=== PATIENT | male | born 1990 | race Caucasian/White ===

== ENCOUNTER 2018-04-09 20:06 | Emergency (ER) | payer BC ==
--- NOTE | 2018-04-09 21:30 | ER ---
Nurse's Notes [facility] Name: Miguel Zayas Age: 28 yrs Sex: Male : 1990 Arrival Date: 04/09/2018 Time: 20:12 Bed Waiting Private MD: Diagnosis: Pain in left arm-s/p blood draw Presentation: 04/09 20:20 Presenting complaint: Patient states: "I had blood drawn at work today and my arm still aj hurts where they took it. It was swollen but it went down." Bruise noted to right mid forearm. Transition of care: patient was not received from another setting of care. Onset of symptoms was April 09, 2018. Risk Assessment: Do you want to hurt yourself or someone else? Patient reports no desire to harm self or others. Initial Sepsis Screen: Does the patient meet any 2 criteria? No. Patient's initial sepsis screen is negative. Does the patient have a suspected source of infection? No. Patient's initial sepsis screen is negative. Care prior to arrival: None. 20:20 Method Of Arrival: Ambulatory 20:20 Acuity: BILLY 5 aj Triage Assessment: 20:21 General: Appears in no apparent distress. comfortable, Behavior is calm, cooperative, aj appropriate for age. Pain: Complains of pain in dorsal aspect of right forearm. Neuro: Level of Consciousness is awake, alert, obeys commands, Oriented to person, place, time, situation, Appropriate for age. Respiratory: Airway is patent Respiratory effort is even, unlabored, Respiratory pattern is regular, symmetrical. Derm: Skin is intact, is healthy with good turgor, Skin is pink, warm \\T\\ dry. normal, Bruising that is brown, on dorsal aspect of right forearm. Historical: - Allergies: 20:21 Amoxicillin; aj - Home Meds: 20:21 Levemir 100 unit/mL subcutaneous soln 20 unit nightly for Type 1 Diabetes Mellitus aj [Active]; - PMHx: 20:21 Diabetes - IDDM; aj - PSHx: 20:21 None; aj - Immunization history:: Adult Immunizations up to date. - Social history:: Smoking status: Patient uses tobacco products, smokes one pack cigarettes per day. - Ebola Screening: : Patient negative for fever greater than or equal to 101.5 degrees Fahrenheit, and additional compatible Ebola Virus Disease symptoms Patient denies exposure to infectious person Patient denies travel to an Ebola-affected area in the 21 days before illness onset No symptoms or risks identified at this time. Screenin:27 Abuse screen: Denies threats or abuse. Denies injuries from another. Nutritional aj screening: No deficits noted. Tuberculosis screening: No symptoms or risk factors identified. Fall Risk None identified. Assessment: 21:27 Reassessment: Patient appears in no apparent distress at this time. No changes from aj previously documented assessment. Patient and/or family updated on plan of care and expected duration. Pain level reassessed. Patient is alert, oriented x 3, equal unlabored respirations, skin warm/dry/pink. Vital Signs: 20:21 BP 130 / 82; Pulse 83; Resp 16; Temp 98.8; Pulse Ox 100% on R/A; Weight 72.57 kg; aj Height 5 ft. 11 in. (180.34 cm); 20:21 Body Mass Index 22.32 (72.57 kg, 180.34 cm) aj ED Course: 20:12 Patient arrived in ED. mr 20:21 Triage completed. aj 20:21 Arm band placed on left wrist. Patient placed in waiting room, Patient notified of wait aj time. 20:53 Tami Castrejon FNP-C is [facility]. snw 20:53 Kaiden Rodriguez MD is Attending Physician. snw 21:27 Patient has correct armband on for positive identification. aj 21:27 No provider procedures requiring assistance completed. Patient did not have IV access aj during this emergency room visit. Administered Medications: No medications were administered Outcome: 21:27 Condition: good aj 21:29 Discharge ordered by . snw 21:34 Discharged to home ambulatory. aj 21:34 Discharge instructions given to patient, Instructed on discharge instructions, follow up and referral plans. Demonstrated understanding of 21:35 Patient left the ED. Signatures: Radha Johnston RN RN Tami Denny FNP-C FNP-Csnw Karen Schmitz mr
--- NOTE | 2018-04-09 21:30 | EDPHYS ---
Physician Documentation [facility] Name: Miguel Zayas Age: 28 yrs Sex: Male : 1990 Arrival Date: 04/09/2018 Time: 20:12 Bed Waiting Private MD: ED Physician Kaiden Rodriguez HPI: 04/09 21:33 This 28 yrs old Male presents to ER via Ambulatory with complaints of Arm snw Swelling. 21:33 Onset: The symptoms/episode began/occurred suddenly. Associated signs and symptoms: snw Pertinent positives: pain to lateral ac space s/p blood draw today. Modifying factors: The patient symptoms are alleviated by nothing. It is unknown whether or not the patient has had similar symptoms in the past. It is unknown whether or not the patient has recently seen a physician. Historical: - Allergies: 20:21 Amoxicillin; aj - Home Meds: 20:21 Levemir 100 unit/mL subcutaneous soln 20 unit nightly for Type 1 Diabetes Mellitus aj [Active]; - PMHx: 20:21 Diabetes - IDDM; aj - PSHx: 20:21 None; aj - Immunization history:: Adult Immunizations up to date. - Social history:: Smoking status: Patient uses tobacco products, smokes one pack cigarettes per day. - Ebola Screening: : Patient negative for fever greater than or equal to 101.5 degrees Fahrenheit, and additional compatible Ebola Virus Disease symptoms Patient denies exposure to infectious person Patient denies travel to an Ebola-affected area in the 21 days before illness onset No symptoms or risks identified at this time. ROS: 21:32 Constitutional: Negative for fever, chills, and weight loss, Eyes: Negative for injury, snw pain, redness, and discharge, ENT: Negative for injury, pain, and discharge, Neck: Negative for injury, pain, and swelling, Cardiovascular: Negative for chest pain, palpitations, and edema, Respiratory: Negative for shortness of breath, cough, wheezing, and pleuritic chest pain, Abdomen/GI: Negative for abdominal pain, nausea, vomiting, diarrhea, and constipation, Back: Negative for injury and pain, : Negative for injury, bleeding, discharge, and swelling, Skin: Negative for injury, rash, and discoloration, Neuro: Negative for headache, weakness, numbness, tingling, and seizure, Psych: Negative for depression, anxiety, suicide ideation, homicidal ideation, and hallucinations. 21:32 MS/extremity: Positive for injury or acute deformity, tingling. Exam: 21:31 Constitutional: This is a well developed, well nourished patient who is awake, alert, snw and in no acute distress. Head/Face: Normocephalic, atraumatic. Eyes: Pupils equal round and reactive to light, extra-ocular motions intact. Lids and lashes normal. Conjunctiva and sclera are non-icteric and not injected. Cornea within normal limits. Periorbital areas with no swelling, redness, or edema. ENT: Nares patent. No nasal discharge, no septal abnormalities noted. Tympanic membranes are normal and external auditory canals are clear. Oropharynx with no redness, swelling, or masses, exudates, or evidence of obstruction, uvula midline. Mucous membranes moist. Neck: Trachea midline, no thyromegaly or masses palpated, and no cervical lymphadenopathy. Supple, full range of motion without nuchal rigidity, or vertebral point tenderness. No Meningismus. Chest/axilla: Normal chest wall appearance and motion. Nontender with no deformity. No lesions are appreciated. Cardiovascular: Regular rate and rhythm with a normal S1 and S2. No gallops, murmurs, or rubs. Normal PMI, no JVD. No pulse deficits. Respiratory: Lungs have equal breath sounds bilaterally, clear to auscultation and percussion. No rales, rhonchi or wheezes noted. No increased work of breathing, no retractions or nasal flaring. Abdomen/GI: Soft, non-tender, with normal bowel sounds. No distension or tympany. No guarding or rebound. No evidence of tenderness throughout. Back: No spinal tenderness. No costovertebral tenderness. Full range of motion. Skin: Warm, dry with normal turgor. Normal color with no rashes, no lesions, and no evidence of cellulitis. MS/ Extremity: Pulses equal, no cyanosis. Neurovascular intact. Full, normal range of motion. Neuro: Awake and alert, GCS 15, oriented to person, place, time, and situation. Cranial nerves II-XII grossly intact. Motor strength 5/5 in all extremities. Sensory grossly intact. Cerebellar exam normal. Normal gait. Psych: Awake, alert, with orientation to person, place and time. Behavior, mood, and affect are within normal limits. Vital Signs: 20:21 BP 130 / 82; Pulse 83; Resp 16; Temp 98.8; Pulse Ox 100% on R/A; Weight 72.57 kg; aj Height 5 ft. 11 in. (180.34 cm); 20:21 Body Mass Index 22.32 (72.57 kg, 180.34 cm) aj MDM: 21:29 Patient medically screened. snw 21:32 Data reviewed: vital signs, nurses notes. Data interpreted: Pulse oximetry: on room air snw is 100 %. Interpretation: normal. Counseling: I had a detailed discussion with the patient and/or guardian regarding: the historical points, exam findings, and any diagnostic results supporting the discharge/admit diagnosis, the presence of at least one elevated blood pressure reading (>120/80) during this emergency department visit, the need for outpatient follow up, for definitive care, to return to the emergency department if symptoms worsen or persist or if there are any questions or concerns that arise at home. Administered Medications: No medications were administered Disposition: 04/09/18 21:29 Discharged to Home. Impression: Pain in left arm - s/p blood draw. - Condition is Stable. - Discharge Instructions: Musculoskeletal Pain, Heat Therapy. - Medication Reconciliation Form, Thank You Letter, Antibiotic Education, Prescription Opioid Use form. - Follow up: Private Physician; When: 2 - 3 days; Reason: Recheck today's complaints, Continuance of care, Re-evaluation by your physician. Follow up: Emergency Department; When: As needed; Reason: Worsening of condition. Addendum: 04/12/2018 06:45 Co-signature as Attending Physician, Kaiden Rodriguez MD. g s Signatures: Radha Johnston, RN RN Tami Denny, STEWARD DISHWASHER-C STEWARD DISHWASHER-Csnw Kaiden Rodriguez MD MD gs Corrections: (The following items were deleted from the chart) 04/09 21:35 21:29 04/09/2018 21:29 Discharged to Home. Impression: Pain in left arm - s/p blood aj draw. Condition is Stable. Forms are Medication Reconciliation Form, Thank You Letter, Antibiotic Education, Prescription Opioid Use. Follow up: Private Physician; When: 2 - 3 days; Reason: Recheck today's complaints, Continuance of care, Re-evaluation by your physician. Follow up: Emergency Department; When: As needed; Reason: Worsening of condition. snw
== END 2018-04-09 21:35 | disposition home or self-care (01) ==
LOC: ER 20:06
DX: M79.602 Pain in left arm (principal); E11.9 Type 2 diabetes mellitus without complications; F17.210 Nicotine dependence, cigarettes, uncomplicated; Z79.4 Long term (current) use of insulin; Z88.1 Allergy status to other antibiotic agents
CPT/HCPCS: 99281

== ENCOUNTER 2018-06-23 20:14 | Emergency (ER) | payer BC ==
--- NOTE | 2018-06-23 21:45 | ER ---
Nurse's Notes [facility] Name: Miguel Zayas Age: 28 yrs Sex: Male : 1990 Arrival Date: 06/23/2018 Time: 20:18 Bed 30 Private MD: DG LEBLANC Diagnosis: Bronchitis, not specified as acute or chronic;Tobacco abuse counseling;Tobacco use;Type 1 diabetes mellitus Presentation: 06/23 20:21 Presenting complaint: Patient states: cough, congestion, SOB since Saturday. Transition ak1 of care: patient was not received from another setting of care. Onset of symptoms is unknown. Risk Assessment: Do you want to hurt yourself or someone else? Patient reports no desire to harm self or others. Initial Sepsis Screen: Does the patient meet any 2 criteria? No. Patient's initial sepsis screen is negative. Does the patient have a suspected source of infection? No. Patient's initial sepsis screen is negative. Care prior to arrival: None. 20:21 Method Of Arrival: Ambulatory ak1 20:21 Acuity: BILLY 4 ak1 Triage Assessment: 20:22 General: Appears in no apparent distress. Behavior is calm, cooperative, no resp ak1 distress noted in triage.. 21:47 Respiratory: Reports cough that is Onset: The symptoms/episode began/occurred tl3 gradually, the patient has moderate shortness of breath. Historical: - Allergies: 20:22 Amoxicillin; ak1 - Home Meds: 20:22 Levemir 100 unit/mL subcutaneous soln 20 unit nightly for Type 1 Diabetes Mellitus ak1 [Active]; - PMHx: 20:22 Diabetes - IDDM; ak1 - PSHx: 20:22 None; ak1 - Immunization history:: Adult Immunizations unknown. - Social history:: Smoking status: Patient uses tobacco products, smokes one pack cigarettes per day. - Ebola Screening: : No symptoms or risks identified at this time. - Family history:: not pertinent. Screenin:00 Abuse screen: Denies threats or abuse. Nutritional screening: No deficits noted. tl3 Tuberculosis screening: No symptoms or risk factors identified. Fall Risk None identified. Assessment: 21:00 Reassessment: pt reports cough and congestion for several days. General: Appears tl3 uncomfortable, well groomed, well developed, well nourished, Behavior is calm, cooperative, appropriate for age. Pain: Complains of pain in chest. Neuro: Level of Consciousness is awake, alert, obeys commands, Oriented to person, place, time, situation, Appropriate for age. Cardiovascular: Patient's skin is warm and dry. Rhythm is regular. Respiratory: Airway is patent Respiratory effort is even, unlabored, Respiratory pattern is regular, symmetrical, Breath sounds are coarse bilaterally. GI: No signs and/or symptoms were reported involving the gastrointestinal system. : No signs and/or symptoms were reported regarding the genitourinary system. EENT: No signs and/or symptoms were reported regarding the EENT system. Derm: No signs and/or symptoms reported regarding the dermatologic system. Musculoskeletal: No signs and/or symptoms reported regarding the musculoskeletal system. 21:46 Reassessment: No changes from previously documented assessment. Patient and/or family tl3 updated on plan of care and expected duration. Pain level reassessed. Patient is alert, oriented x 3, equal unlabored respirations, skin warm/dry/pink. pt on nebulizer treatment, xray just completed. 22:23 Reassessment: Patient appears in no apparent distress at this time. No changes from tl3 previously documented assessment. Patient and/or family updated on plan of care and expected duration. Pain level reassessed. Patient is alert, oriented x 3, equal unlabored respirations, skin warm/dry/pink. Patient states feeling better. Patient states symptoms have improved. Vital Signs: 20:22 BP 133 / 102; Pulse 92; Resp 20; Temp 97.9(O); Pulse Ox 100% on R/A; Weight 74.84 kg ak1 (R); Height 5 ft. 11 in. (180.34 cm) (R); Pain 0/10; 20:32 BP 126 / 83 LA Sitting (auto/reg); Pulse 85; Resp 18; Pulse Ox 100% on R/A; Pain 2/10; jp3 21:00 BP 136 / 87; Pulse 81; Resp 18; Pulse Ox 98% ; tl3 22:23 BP 126 / 84; Pulse 81; Resp 18; Pulse Ox 100% on R/A; tl3 20:22 Body Mass Index 23.01 (74.84 kg, 180.34 cm) ak1 20:32 patient reports pain in chest wall. patient smokes pack of cigs a day jp3 ED Course: 20:18 Patient arrived in ED. am2 20:18 DG LEBLANC is Private Physician. am2 20:22 Triage completed. ak1 20:22 Arm band placed on Patient placed in an exam room, on a stretcher, Patient notified of ak1 wait time. 20:25 Ferdinand Jones MD is Attending Physician. zara 21:00 Kathie Dunaway, RN is Primary Nurse. tl3 21:00 Patient has correct armband on for positive identification. Bed in low position. Call tl3 light in reach. Side rails up X 1. Pulse ox on. NIBP on. 21:00 No provider procedures requiring assistance completed. Patient did not have IV access tl3 during this emergency room visit. 21:35 X-ray(s) taken. tl3 21:46 Chest Single View XRAY Sent. tl3 21:48 Chest Single View XRAY In Process Unspecified. EDMS Administered Medications: 21:45 Drug: Albuterol - atroVENT (3:1) (2.5 mg - 0.5 mg) 3 ml Route: Nebulizer; tl3 22:24 Follow up: Response: No adverse reaction tl3 21:46 Drug: Zithromax 500 mg Route: PO; tl3 22:25 Follow up: Response: No adverse reaction tl3 21:46 Drug: predniSONE 40 mg Route: PO; tl3 22:25 Follow up: Response: No adverse reaction tl3 Point of Care Testing: Blood Glucose: 21:40 Blood Glucose: 289 mg/dL; tl3 Ranges: Outcome: 21:44 Discharge ordered by . zara 22:23 Discharged to home ambulatory. tl3 22:23 Condition: stable 22:23 Discharge instructions given to patient, Instructed on discharge instructions, follow up and referral plans. medication usage, Demonstrated understanding of instructions, follow-up care, medications, Prescriptions given X 3. 22:26 Patient left the ED. tl3 Signatures: Dispatcher [employer] EDMS Ferdinand Jones MD MD cha Krenek, Amber, RN RN ak1 Radha Bonilla am2 Kathie Dunaway, SOWMYA RN tl3 Josh Orellana jp3
--- NOTE | 2018-06-23 21:45 | EDPHYS ---
Physician Documentation [facility] Name: Migeul Zayas Age: 28 yrs Sex: Male : 1990 Arrival Date: 06/23/2018 Time: 20:18 Bed 30 Private MD: DG LEBLANC ED Physician Ferdinand Jones HPI: 06/23 21:32 This 28 yrs old Male presents to ER via Ambulatory with complaints of Cough, zara Shortness Of Breath. 21:32 The patient or guardian reports airway noise, cough, difficulty breathing. Onset: The zara symptoms/episode began/occurred 3 day(s) ago. Severity of symptoms: At their worst the symptoms were mild. Modifying factors: The symptoms are alleviated by nothing, the symptoms are aggravated by nothing. Associated signs and symptoms: The patient has no apparent associated signs or symptoms. The patient has not experienced similar symptoms in the past. Historical: - Allergies: 20:22 Amoxicillin; ak1 - Home Meds: 20:22 Levemir 100 unit/mL subcutaneous soln 20 unit nightly for Type 1 Diabetes Mellitus ak1 [Active]; - PMHx: 20:22 Diabetes - IDDM; ak1 - PSHx: 20:22 None; ak1 - Immunization history:: Adult Immunizations unknown. - Social history:: Smoking status: Patient uses tobacco products, smokes one pack cigarettes per day. - Ebola Screening: : No symptoms or risks identified at this time. - Family history:: not pertinent. ROS: 21:32 Constitutional: Negative for fever, chills, and weight loss, Eyes: Negative for injury, zara pain, redness, and discharge, ENT: Negative for injury, pain, and discharge, Neck: Negative for injury, pain, and swelling, Cardiovascular: Negative for chest pain, palpitations, and edema, Abdomen/GI: Negative for abdominal pain, nausea, vomiting, diarrhea, and constipation, Back: Negative for injury and pain, : Negative for injury, bleeding, discharge, and swelling, MS/Extremity: Negative for injury and deformity, Skin: Negative for injury, rash, and discoloration, Neuro: Negative for headache, weakness, numbness, tingling, and seizure, Psych: Negative for depression, anxiety, suicide ideation, homicidal ideation, and hallucinations, Allergy/Immunology: Negative for hives, rash, and allergies, Endocrine: Negative for neck swelling, polydipsia, polyuria, polyphagia, and marked weight changes, Hematologic/Lymphatic: Negative for swollen nodes, abnormal bleeding, and unusual bruising. 21:32 Respiratory: Positive for cough, shortness of breath, wheezing, expiratory. Exam: 21:32 Constitutional: This is a well developed, well nourished patient who is awake, alert, zara and in no acute distress. Head/Face: Normocephalic, atraumatic. Eyes: Pupils equal round and reactive to light, extra-ocular motions intact. Lids and lashes normal. Conjunctiva and sclera are non-icteric and not injected. Cornea within normal limits. Periorbital areas with no swelling, redness, or edema. ENT: Nares patent. No nasal discharge, no septal abnormalities noted. Tympanic membranes are normal and external auditory canals are clear. Oropharynx with no redness, swelling, or masses, exudates, or evidence of obstruction, uvula midline. Mucous membranes moist. Neck: Trachea midline, no thyromegaly or masses palpated, and no cervical lymphadenopathy. Supple, full range of motion without nuchal rigidity, or vertebral point tenderness. No Meningismus. Chest/axilla: Normal chest wall appearance and motion. Nontender with no deformity. No lesions are appreciated. Cardiovascular: Regular rate and rhythm with a normal S1 and S2. No gallops, murmurs, or rubs. Normal PMI, no JVD. No pulse deficits. Abdomen/GI: Soft, non-tender, with normal bowel sounds. No distension or tympany. No guarding or rebound. No evidence of tenderness throughout. Back: No spinal tenderness. No costovertebral tenderness. Full range of motion. Male : Normal genitalia with no discharge or lesions. Skin: Warm, dry with normal turgor. Normal color with no rashes, no lesions, and no evidence of cellulitis. MS/ Extremity: Pulses equal, no cyanosis. Neurovascular intact. Full, normal range of motion. Neuro: Awake and alert, GCS 15, oriented to person, place, time, and situation. Cranial nerves II-XII grossly intact. Motor strength 5/5 in all extremities. Sensory grossly intact. Cerebellar exam normal. Normal gait. Psych: Awake, alert, with orientation to person, place and time. Behavior, mood, and affect are within normal limits. 21:32 Respiratory: the patient does not display signs of respiratory distress, Respirations: normal, no acute changes, Breath sounds: bronchial sounds, decreased breath sounds, are not appreciated, rhonchi, that are mild, + upper airway congestion. Respiratory rate: 18 Vital Signs: 20:22 BP 133 / 102; Pulse 92; Resp 20; Temp 97.9(O); Pulse Ox 100% on R/A; Weight 74.84 kg ak1 (R); Height 5 ft. 11 in. (180.34 cm) (R); Pain 0/10; 20:32 BP 126 / 83 LA Sitting (auto/reg); Pulse 85; Resp 18; Pulse Ox 100% on R/A; Pain 2/10; jp3 21:00 BP 136 / 87; Pulse 81; Resp 18; Pulse Ox 98% ; tl3 22:23 BP 126 / 84; Pulse 81; Resp 18; Pulse Ox 100% on R/A; tl3 20:22 Body Mass Index 23.01 (74.84 kg, 180.34 cm) ak1 20:32 patient reports pain in chest wall. patient smokes pack of cigs a day jp3 MDM: 20:25 Patient medically screened. [facility] 06/23 21:00 Order name: Chest Single View XRAY 3 06/23 21:32 Order name: Blood Glucose Level; Complete Time: 21:36 [facility] Administered Medications: 21:45 Drug: Albuterol - atroVENT (3:1) (2.5 mg - 0.5 mg) 3 ml Route: Nebulizer; tl3 22:24 Follow up: Response: No adverse reaction tl3 21:46 Drug: Zithromax 500 mg Route: PO; tl3 22:25 Follow up: Response: No adverse reaction tl3 21:46 Drug: predniSONE 40 mg Route: PO; tl3 22:25 Follow up: Response: No adverse reaction tl3 Point of Care Testing: Blood Glucose: 21:40 Blood Glucose: 289 mg/dL; tl3 Ranges: Critical Glucose Levels:Adult <50 mg/dl or >400 mg/dl <40 mg/dl or >180 mg/dl Disposition: 06/23/18 21:44 Discharged to Home. Impression: Bronchitis, not specified as acute or chronic, Tobacco abuse counseling, Tobacco use, Type 1 diabetes mellitus. - Condition is Stable. - Discharge Instructions: Acute Bronchitis, Adult, Type 1 Diabetes Mellitus, Diagnosis, Adult, Steps to Quit Smoking, Smoking Hazards, Upper Respiratory Infection, Adult, Upper Respiratory Infection, Adult, [id number], Steps to Quit Smoking, Zozl-wf-Ddhc, Cough, Adult, Type 1 Diabetes Mellitus, Diagnosis, Adult, [id number]. - Prescriptions for Medrol (Jnuior) 4 mg Oral Tablets, Dose Pack - take 1 tablet by ORAL route as directed - follow package instructions; 1 packet. Albuterol Sulfate 90 mcg/actuation - inhale 1-2 puff by INHALATION route every 4-6 hours; 1 Inhaler. Zithromax 500 mg Oral Tablet - take 1 tablet by ORAL route once daily for 5 days; 5 tablet. - Medication Reconciliation Form, Thank You Letter, Antibiotic Education, Prescription Opioid Use form. - Follow up: Private Physician; When: 2 - 3 days; Reason: Recheck today's complaints, Continuance of care, Re-evaluation by your physician. - Problem is new. - Symptoms have improved. Signatures: Dispatcher [employer] EDID Ferdinand Jones MD MD cha Krenek, Amber RN RN ak1 Kathie Dunaway RN RN tl3 Corrections: (The following items were deleted from the chart) 21:44 21:44 06/23/2018 21:44 Discharged to Home. Impression: Bronchitis, not specified as zara acute or chronic; Tobacco abuse counseling; Tobacco use. Condition is Stable. Discharge Instructions: Acute Bronchitis, Adult, Steps to Quit Smoking, Smoking Hazards, Upper Respiratory Infection, Adult, Upper Respiratory Infection, Adult, Rapf-tw-Dkzl, Steps to Quit Smoking, Wdav-fr-Lpex, Cough, Adult. Prescriptions for Medrol (Junior) 4 mg Oral Tablets, Dose Pack - take 1 tablet by ORAL route as directed - follow package instructions; 1 packet, Albuterol Sulfate 90 mcg/actuation - inhale 1-2 puff by INHALATION route every 4-6 hours; 1 Inhaler, Zithromax 500 mg Oral Tablet - take 1 tablet by ORAL route once daily for 5 days; 5 tablet. and Forms are Medication Reconciliation Form, Thank You Letter, Antibiotic Education, Prescription Opioid Use. Follow up: Private Physician; When: 2 - 3 days; Reason: Recheck today's complaints, Continuance of care, Re-evaluation by your physician. Problem is new. Symptoms have improved. zara 22:26 21:44 06/23/2018 21:44 Discharged to Home. Impression: Bronchitis, not specified as tl3 acute or chronic; Tobacco abuse counseling; Tobacco use; Type 1 diabetes mellitus. Condition is Stable. Discharge Instructions: Acute Bronchitis, Adult, Steps to Quit Smoking, Smoking Hazards, Upper Respiratory Infection, Adult, Upper Respiratory Infection, Adult, Mmdl-ds-[id number], Steps to Quit Smoking, Eagi-ot-Knlg, Cough, Adult. Prescriptions for Medrol (Junior) 4 mg Oral Tablets, Dose Pack - take 1 tablet by ORAL route as directed - follow package instructions; 1 packet, Albuterol Sulfate 90 mcg/actuation - inhale 1-2 puff by INHALATION route every 4-6 hours; 1 Inhaler, Zithromax 500 mg Oral Tablet - take 1 tablet by ORAL route once daily for 5 days; 5 tablet. and Forms are Medication Reconciliation Form, Thank You Letter, Antibiotic Education, Prescription Opioid Use. Follow up: Private Physician; When: 2 - 3 days; Reason: Recheck today's complaints, Continuance of care, Re-evaluation by your physician. Problem is new. Symptoms have improved. [facility]
[2018-06-23] MEDS ORDERED: IPRATROPIUM BROM 0.5MG/2.5ML ONE (21:50)
[2018-06-23] MEDS ORDERED: AZITHROMYCIN 250 MG TAB ONE (21:50)
[2018-06-23] MEDS ORDERED: predniSONE 20 MG TAB ONE (21:50)
[2018-06-23] MEDS ORDERED: ALBUTEROL 2.5 MG/3 ML NEB SOL ONE (21:50)
--- NOTE | 2018-06-23 22:14 | RAD REPORT ---
EXAM DESCRIPTION: RAD - Chest Single View - 06/23/2018 9:47 pm CLINICAL HISTORY: Cough and congestion COMPARISON: None. TECHNIQUE: AP portable chest image was obtained 2138 hours . FINDINGS: Lungs are clear. Heart and vasculature are normal. No measurable pleural effusion and no p neumothorax. No acute bony abnormality seen. No acute aortic findings suspected. IMPRESSION: No acute cardiopulmonary process.
== END 2018-06-23 22:26 | disposition home or self-care (01) ==
LOC: ER 20:14
DX: J40 Bronchitis, not specified as acute or chronic (principal); Z71.6 Tobacco abuse counseling; E10.9 Type 1 diabetes mellitus without complications; F17.210 Nicotine dependence, cigarettes, uncomplicated; Z79.4 Long term (current) use of insulin; Z88.0 Allergy status to penicillin
CPT/HCPCS: 71045; 82962; 94640; 99284; J7512

== ENCOUNTER 2019-06-10 19:23 | Emergency (ER) | payer BC, SELFPAY ==
[2019-06-10] MEDS ORDERED: NA CHLORIDE 0.9% 1,000 ML ONE (20:08)
[2019-06-10 20:43] LABS: ALT/SGPT 38 U/L (12-78); AST/SGOT 9 U/L (15-37); Albumin 3.8 g/dL (3.4-5.0); Alkaline Phosphatase 85 U/L (45-117); BUN Blood Urea Nitrogen 13 mg/dL (7-18); Bicarbonate 28 mmol/L (21-32); Bilirubin Direct < 0.1 mg/dL (0-0.2); Bilirubin Total 0.3 mg/dL (0.2-1.0); Lipase 113 U/L (73-393); Protein, Total 6.2 g/dL (6.4-8.2); Sodium Level 132 mmol/L (136-145)
[2019-06-10 20:45] LABS: Glucose Level 507 mg/dL (74-106)
[2019-06-10] MEDS ORDERED: INSULIN -REGULAR HUMAN 50 UNIT/0.5 ML ML ONE (21:14)
[2019-06-10 21:24] LABS: Absolute Lymphocytes (CBC) 1.5 K/uL (0.7-4.9); Basophils % 0.7 % (0-1.3); Hematocrit 36.2 % (39.6-49.0); Lymphocytes % 27.7 % (15.3-44.8); MPV 7.8 fL (7.6-11.3); RBC Red Blood Cell Count 3.91 M/uL (4.33-5.43)
[2019-06-10] MEDS ORDERED: DIPHENOX/ATROP SULF 1 TAB PO ONE (22:10)
--- NOTE | 2019-06-10 22:26 | ER ---
Nurse's Notes [facility] Name: Miguel Zayas Age: 29 yrs Sex: Male : 1990 Arrival Date: 06/10/2019 Time: 19:25 Bed 13 Private MD: Diagnosis: Diarrhea, unspecified;Dehydration Presentation: 06/10 19:33 Presenting complaint: Patient states: PAIN IS 5/10, BURNING AND CONSTANT PAIN ON THE rv BELLY FOR TWO WEEKS NOW WITH DIARRHEA. DENIES FEVER, NAUSEA AND VOMITING. STILL ABLE TO HOLD FOOD AND WATER. Transition of care: patient was not received from another setting of care. Onset of symptoms was May 27, 2019 at 08:00. Risk Assessment: Do you want to hurt yourself or someone else? Patient reports no desire to harm self or others. Initial Sepsis Screen: Does the patient meet any 2 criteria? No. Patient's initial sepsis screen is negative. Does the patient have a suspected source of infection? No. Patient's initial sepsis screen is negative. Care prior to arrival: None. 19:33 Method Of Arrival: Ambulatory rv 19:33 Acuity: BILLY 3 rv Historical: - Allergies: 19:37 Amoxicillin; rv - Home Meds: 19:37 Levemir 100 unit/mL subcutaneous soln 20 unit nightly for Type 1 Diabetes Mellitus rv [Active]; - PMHx: 19:37 Diabetes - IDDM; Diabetes - NIDDM; rv - PSHx: 19:37 None; rv - Immunization history:: Adult Immunizations up to date. - Social history:: Smoking status: Patient uses tobacco products, smokes one pack cigarettes per day. - Ebola Screening: : No symptoms or risks identified at this time. Screenin:39 Abuse screen: Denies threats or abuse. Denies injuries from another. Nutritional rv screening: No deficits noted. Tuberculosis screening: No symptoms or risk factors identified. Fall Risk None identified. Assessment: 19:38 General: Appears in no apparent distress. Behavior is calm, cooperative. Pain: rv Complains of pain in abdomen Pain currently is 5 out of 10 on a pain scale. Quality of pain is described as burning, Pain began TWO WEEKS Is continuous. Neuro: Level of Consciousness is awake, alert, obeys commands, Oriented to person, place, time, situation. Cardiovascular: Patient's skin is warm and dry. Respiratory: Airway is patent. GI: Bowel sounds present X 4 quads. Abd is soft and non tender X 4 quads. Reports lower abdominal pain, upper abdominal pain, diarrhea. : Denies burning with urination. Derm: Skin is intact. Vital Signs: 19:35 BP 138 / 90; Pulse 77; Resp 16; Temp 98.5; Pulse Ox 100% ; Weight 72.57 kg; Height 5 rv ft. 11 in. (180.34 cm); Pain 5/10; 20:00 BP 132 / 81; Pulse 79; Resp 16; Pulse Ox 100% on R/A; rv 20:30 BP 122 / 82; Pulse 76; Resp 16; Pulse Ox 99% on R/A; rv 21:00 BP 129 / 76; Pulse 72; Resp 17; Pulse Ox 97% on R/A; rv 21:28 BP 195 / 95; Pulse 71; Resp 17; Pulse Ox 97% on R/A; rv 22:11 BP 115 / 78; Pulse 90; Resp 17; Pulse Ox 98% on R/A; rv 19:35 Body Mass Index 22.32 (72.57 kg, 180.34 cm) rv ED Course: 19:25 Patient arrived in ED. ds1 19:30 Norm Regan MD is Attending Physician. tw4 19:33 Wes Walker, SOWMYA is Primary Nurse. rv 19:35 Triage completed. rv 19:37 Arm band placed on Patient placed in the treatment room, on a stretcher, Patient rv notified of wait time. 19:39 Patient has correct armband on for positive identification. Pulse ox on. NIBP on. rv 20:03 Inserted saline lock: 18 gauge in right forearm, using aseptic technique. Blood rv collected. 22:11 No provider procedures requiring assistance completed. IV discontinued, intact, rv bleeding controlled, No redness/swelling at site. Pressure dressing applied. Administered Medications: 20:10 Drug: NS 0.9% 1000 ml Route: IV; Rate: 1 bolus; Site: right antecubital; rv 21:15 Follow up: IV Status: Completed infusion; IV Intake: 1000ml rv 21:14 Drug: Insulin Regular Human 10 units {Co-Signature: ca1 (Rylee Vasquez RN).} Route: IVP; rv Site: right antecubital; 22:04 Follow up: Response: No adverse reaction; Blood sugar is lowered rv 22:11 Drug: LoMOTIL 1 tabs Route: PO; rv 22:42 Follow up: Response: Medication administered at discharge. rv Intake: 21:15 IV: 1000ml; Total: 1000ml. rv Outcome: 22:12 Discharged to home ambulatory. rv 22:12 Condition: good 22:12 Discharge instructions given to patient, Instructed on discharge instructions, follow up and referral plans. Demonstrated understanding of instructions, follow-up care. 22:25 Discharge ordered by MD. foreman 22:41 Patient left the ED. rv Signatures: Elisabeth Manrique ds1 Norm Regan MD MD tw4 Wes Walker RN RN rv Rylee Vasquez RN ca1
--- NOTE | 2019-06-10 22:27 | EDPHYS ---
Physician Documentation [facility] Name: Miguel Zayas Age: 29 yrs Sex: Male : 1990 Arrival Date: 06/10/2019 Time: 19:25 Bed 13 Private MD: ED Physician Norm Regan HPI: 06/11 01:06 This 29 yrs old Male presents to ER via Ambulatory with complaints of tw4 Abdominal Pain, Diarrhea. 01:06 The patient presents to the emergency department with diarrhea. tw4 01:06 Onset: The symptoms/episode began/occurred 2 week(s) ago. Possible causes: unknown. The tw4 symptoms are aggravated by nothing. The symptoms are alleviated by nothing. Associated signs and symptoms: The patient has no apparent associated signs or symptoms. Severity of symptoms: At their worst the symptoms were moderate in the emergency department the symptoms are unchanged. The patient has not experienced similar symptoms in the past. Historical: - Allergies: 06/10 19:37 Amoxicillin; rv - Home Meds: 19:37 Levemir 100 unit/mL subcutaneous soln 20 unit nightly for Type 1 Diabetes Mellitus rv [Active]; - PMHx: 19:37 Diabetes - IDDM; Diabetes - NIDDM; rv - PSHx: 19:37 None; rv - Immunization history:: Adult Immunizations up to date. - Social history:: Smoking status: Patient uses tobacco products, smokes one pack cigarettes per day. - Ebola Screening: : No symptoms or risks identified at this time. ROS: 06/11 01:06 Constitutional: Negative for fever, chills, and weight loss, Eyes: Negative for injury, tw4 pain, redness, and discharge, Cardiovascular: Negative for chest pain, palpitations, and edema, Respiratory: Negative for shortness of breath, cough, wheezing, and pleuritic chest pain, Back: Negative for injury and pain, MS/Extremity: Negative for injury and deformity, Skin: Negative for injury, rash, and discoloration, Neuro: Negative for headache, weakness, numbness, tingling, and seizure. Abdomen/GI: Positive for abdominal pain, diarrhea, Negative for nausea and vomiting, nausea, vomiting, and diarrhea, nausea, vomiting, constipation, abdominal cramps, abdominal distension, anorexia, dysphagia, hematemesis, black/tarry stool, rectal pain, rectal bleeding, bowel incontinence, flatulence. Exam: 01:06 Constitutional: This is a well developed, well nourished patient who is awake, alert, tw4 and in no acute distress. Eyes: Pupils equal round and reactive to light, extra-ocular motions intact. Lids and lashes normal. Conjunctiva and sclera are non-icteric and not injected. Cornea within normal limits. Periorbital areas with no swelling, redness, or edema. Chest/axilla: Normal chest wall appearance and motion. Nontender with no deformity. No lesions are appreciated. Cardiovascular: Regular rate and rhythm with a normal S1 and S2. No gallops, murmurs, or rubs. Normal PMI, no JVD. No pulse deficits. Respiratory: Lungs have equal breath sounds bilaterally, clear to auscultation and percussion. No rales, rhonchi or wheezes noted. No increased work of breathing, no retractions or nasal flaring. Back: No spinal tenderness. No costovertebral tenderness. Full range of motion. MS/ Extremity: Pulses equal, no cyanosis. Neurovascular intact. Full, normal range of motion. Neuro: Awake and alert, GCS 15, oriented to person, place, time, and situation. Cranial nerves II-XII grossly intact. Motor strength 5/5 in all extremities. Sensory grossly intact. Cerebellar exam normal. Normal gait. 01:06 Abdomen/GI: Inspection: abdomen appears normal, Bowel sounds: diminished, Palpation: moderate abdominal tenderness, in the left lower quadrant. Vital Signs: 06/10 19:35 BP 138 / 90; Pulse 77; Resp 16; Temp 98.5; Pulse Ox 100% ; Weight 72.57 kg; Height 5 rv ft. 11 in. (180.34 cm); Pain 5/10; 20:00 BP 132 / 81; Pulse 79; Resp 16; Pulse Ox 100% on R/A; rv 20:30 BP 122 / 82; Pulse 76; Resp 16; Pulse Ox 99% on R/A; rv 21:00 BP 129 / 76; Pulse 72; Resp 17; Pulse Ox 97% on R/A; rv 21:28 BP 195 / 95; Pulse 71; Resp 17; Pulse Ox 97% on R/A; rv 22:11 BP 115 / 78; Pulse 90; Resp 17; Pulse Ox 98% on R/A; rv 19:35 Body Mass Index 22.32 (72.57 kg, 180.34 cm) rv MDM: 19:31 Patient medically screened. 06/11 01:07 Differential diagnosis: Nonspecific abd pain, gastritis, pancreatitis, appendicitis. tw4 Data reviewed: vital signs, nurses notes. Data interpreted: Pulse oximetry: is not applicable for this patient encounter. Counseling: I had a detailed discussion with the patient and/or guardian regarding: the historical points, exam findings, and any diagnostic results supporting the discharge/admit diagnosis. Medication response: LOMOTIL. Response to treatment: the patient's symptoms have markedly improved after treatment, and as a result, I will discharge patient. Special discussion: Based on the patient's Hx, exam, and Dx evaluation, there is no indication for emergent surgery or inpatient Tx. It is understood by the patient/guardian that if the Sx's persist or worsen they need to return immediately for re-evaluation. I discussed with the patient/guardian in detail that at this point there is no indication for admission to the hospital. It is understood, however, that if the symptoms persist or worsen the patient needs to return immediately for re-evaluation. 06/10 19:54 Order name: Basic Metabolic Panel; Complete Time: 20:59 [facility] 06/10 20:59 Interpretation: Normal except: NA 132; CL 96; GLUC 507. 06/10 19:54 Order name: CBC with Diff 06/10 19:54 Order name: Creatinine for Radiology; Complete Time: 20:59 [facility] 06/10 21:00 Interpretation: Within normal limits: CRE 0.76. 06/10 19:54 Order name: Hepatic Function; Complete Time: 20:59 [facility] 06/10 21:00 Interpretation: Normal except: AST 9; TP 6.2. 06/10 19:54 Order name: Lipase; Complete Time: 20:59 [facility] 06/10 21:00 Interpretation: Within normal limits: LIP 113. 06/10 20:24 Order name: Glucose, Ancillary Testing; Complete Time: 20:59 [facility] 06/10 21:00 Interpretation: Normal except: GLUC,ANCIL 462. 06/10 19:54 Order name: IV Saline Lock; Complete Time: 20:04 tw 06/10 19:54 Order name: Labs collected and sent; Complete Time: 20:04 tw4 06/10 21:58 Order name: Glucose, Ancillary Testing EDMS Administered Medications: 06/10 20:10 Drug: NS 0.9% 1000 ml Route: IV; Rate: 1 bolus; Site: right antecubital; rv 21:15 Follow up: IV Status: Completed infusion; IV Intake: 1000ml rv 21:14 Drug: Insulin Regular Human 10 units {Co-Signature: ca1 (Rylee Vsaquez RN).} Route: IVP; rv Site: right antecubital; 22:04 Follow up: Response: No adverse reaction; Blood sugar is lowered rv 22:11 Drug: LoMOTIL 1 tabs Route: PO; rv 22:42 Follow up: Response: Medication administered at discharge. rv Disposition: 06/10/19 22:25 Discharged to Home. Impression: Diarrhea, unspecified, Dehydration. - Condition is Stable. - Discharge Instructions: Food Choices to Help Relieve Diarrhea, Adult, Dehydration, Adult, Chronic Diarrhea, Diarrhea, Adult, Hyperglycemia. - Prescriptions for Lomotil 2.5- 0.025 mg Oral Tablet - take 2 tablet by ORAL route once daily As needed; 20 tablet. - Medication Reconciliation Form, Thank You Letter, Antibiotic Education, Prescription Opioid Use form. - Follow up: Private Physician; When: Upon discharge from the Emergency Department; Reason: Recheck today's complaints, Continuance of care. - Problem is new. - Symptoms have improved. Signatures: Dispatcher [employer] EDMS Norm Regan MD MD tw4 Wes Walker RN RN rv Rylee Vasquez RN ca1 Corrections: (The following items were deleted from the chart) 22:41 22:25 06/10/2019 22:25 Discharged to Home. Impression: Diarrhea, unspecified; rv Dehydration. Condition is Stable. Forms are Medication Reconciliation Form, Thank You Letter, Antibiotic Education, Prescription Opioid Use. Follow up: Private Physician; When: Upon discharge from the Emergency Department; Reason: Recheck today's complaints, Continuance of care. Problem is new. Symptoms have improved. tw4
[2019-06-11 02:16] VITALS: TEMP 98.5
[2019-06-11 02:24] VITALS: BP 115/78; O2SAT 98
== END 2019-06-10 22:41 | disposition home or self-care (01) ==
LOC: ER 19:23
DX: R19.7 Diarrhea, unspecified (principal); E86.0 Dehydration; Z88.1 Allergy status to other antibiotic agents; E11.9 Type 2 diabetes mellitus without complications; F17.210 Nicotine dependence, cigarettes, uncomplicated
CPT/HCPCS: 36415; 80048; 80076; 82947; 83690; 85025; 96361; 96374; 99284; J7030

== ENCOUNTER 2019-11-23 02:23 | Emergency (ER) | payer SELFPAY ==
[2019-11-23] MEDS ORDERED: FAMOTIDINE 20 MG/2 ML VIAL IV ONE (03:18)
[2019-11-23] MEDS ORDERED: ONDANSETRON 4 MG/2 ML VIAL ONE (03:18)
[2019-11-23] MEDS ORDERED: MORPHINE 4 MG/ML SYR ONE (03:18)
[2019-11-23] MEDS ORDERED: NA CHLORIDE 0.9% 1,000 ML ONE (03:18)
[2019-11-23 03:19] LABS: Absolute Lymphocytes (CBC) 1.8 K/uL (0.7-4.9); Hematocrit 38.9 % (39.6-49.0); MPV 7.1 fL (7.6-11.3); RBC Red Blood Cell Count 4.16 M/uL (4.33-5.43)
[2019-11-23 03:20] LABS: Urine Glucose 2+ (NEG); Urine Specific Gravity 1.015 (1.005-1.030)
[2019-11-23 03:21] LABS: Urine Blood NEGATIVE (NEG); Urine Protein NEGATIVE (NEG)
[2019-11-23 03:49] LABS: ALT/SGPT 32 U/L (12-78); AST/SGOT 12 U/L (15-37); Albumin 3.9 g/dL (3.4-5.0); Alkaline Phosphatase 96 U/L (45-117); BUN Blood Urea Nitrogen 9 mg/dL (7-18); Bicarbonate 21 mmol/L (21-32); Bilirubin Direct < 0.1 mg/dL (0-0.2); Bilirubin Total 0.3 mg/dL (0.2-1.0); Glucose Level 412 mg/dL (74-106); Lipase 174 U/L (73-393); Potassium 3.7 mmol/L (3.5-5.1); Protein, Total 6.4 g/dL (6.4-8.2); Sodium Level 134 mmol/L (136-145)
--- NOTE | 2019-11-23 04:26 | ER ---
Nurse's Notes [facility] Name: Miguel Zayas Age: 29 yrs Sex: Male : 1990 Arrival Date: 11/23/2019 Time: 02:25 Bed 16 Private MD: Diagnosis: Diarrhea, unspecified Presentation: 11/22 02:34 Chief complaint: Patient states: i have lower abdominal pain and diarrhea for months mg2 now,. i was here last May for the same problem. denies fever, cough, vomiting. Coronavirus screen: Proceed with normal triage. Patient denies a cough. Patient denies shortness of breath or difficulty breathing. Patient denies measured and/or subjective temperature greater than 100.4F prior to today's visit. Patient denies travel on a cruise ship or to a country the [facility] currently lists as an affected area. Patient denies contact with known and/or suspected case of COVID-19. Ebola Screen: No symptoms or risks identified at this time. Initial Sepsis Screen: Does the patient meet any 2 criteria? No. Patient's initial sepsis screen is negative. Does the patient have a suspected source of infection? No. Patient's initial sepsis screen is negative. Risk Assessment: Do you want to hurt yourself or someone else? Patient reports no desire to harm self or others. Onset of symptoms was May 2019. 02:34 Method Of Arrival: Ambulatory mg2 02:34 Acuity: BILLY 3 mg2 Triage Assessment: 02:36 General: Appears in no apparent distress. comfortable, Behavior is calm, cooperative. mg2 Pain: Complains of pain in abdomen Pain currently is 6 out of 10 on a pain scale. Quality of pain is described as aching, Pain began gradually, Is intermittent. EENT: No signs and/or symptoms were reported regarding the EENT system. Neuro: Level of Consciousness is awake, alert, obeys commands, Oriented to person, place, time, situation. Cardiovascular: Capillary refill < 3 seconds Patient's skin is warm and dry. Respiratory: Airway is patent Respiratory effort is even, unlabored, Respiratory pattern is regular, symmetrical. GI: Reports lower abdominal pain, diarrhea. : No signs and/or symptoms were reported regarding the genitourinary system. Derm: Skin is intact, is healthy with good turgor, Skin is pink, warm \T\ dry. normal. Musculoskeletal: Circulation, motion, and sensation intact. Capillary refill < 3 seconds. Historical: - Allergies: 02:36 Amoxicillin; mg2 - Home Meds: 02:36 Levemir 100 unit/mL subcutaneous soln 20 unit nightly for Type 1 Diabetes Mellitus mg2 [Active]; - PMHx: 02:36 Diabetes - IDDM; mg2 - PSHx: 02:36 None; mg2 - Immunization history:: Flu vaccine is not up to date. - Social history:: Smoking status: Patient reports the use of cigarette tobacco products, smokes one pack cigarettes per day. Patient/guardian denies using alcohol, street drugs, IV drugs, Patient/guardian denies using. - Family history:: not pertinent. Screenin:37 Abuse screen: Denies threats or abuse. Denies injuries from another. Nutritional mg2 screening: No deficits noted. Tuberculosis screening: No symptoms or risk factors identified. Fall Risk IV access (20 points). Assessment: 02:37 General: see triage note. mg2 04:40 Reassessment: Patient appears in no apparent distress at this time. Patient and/or mg2 family updated on plan of care and expected duration. Pain level reassessed. Patient states feeling better. Vital Signs: 02:34 BP 137 / 92; Resp 18; Temp 98.4; Pulse Ox 100% on R/A; Weight 68.04 kg; Height 5 ft. 11 mg2 in. (180.34 cm); Pain 6/10; 03:14 Pulse 76; Pulse Ox 100% on R/A; mg2 04:27 Pulse 72; Resp 18; Temp 98.5; Pulse Ox 100% on R/A; mg2 04:40 BP 128 / 78; Pulse 68; Resp 18; Temp 98; Pulse Ox 100% on R/A; mg2 02:34 Body Mass Index 20.92 (68.04 kg, 180.34 cm) mg2 ED Course: 02:25 Patient arrived in ED. ds1 02:26 Yousuf Carlton RN is Primary Nurse. mg2 02:28 Samantha Newton MD is Attending Physician. ma2 02:36 Triage completed. mg2 02:37 Arm band placed on. mg2 02:38 Patient has correct armband on for positive identification. Pulse ox on. NIBP on. Door mg2 closed. Warm blanket given. 02:38 No provider procedures requiring assistance completed. mg2 03:00 Inserted saline lock: 20 gauge in right antecubital area, using aseptic technique. mg2 Blood collected. 03:50 Notified ED physician of a critical lab result(s). glucose of 412. jd3 04:41 IV discontinued, intact, bleeding controlled, No redness/swelling at site. Pressure mg2 dressing applied. Administered Medications: 03:13 Drug: NS 0.9% 1000 ml Route: IV; Rate: 1 bolus; Site: right antecubital; mg2 04:27 Follow up: Response: No adverse reaction; IV Status: Completed infusion; IV Intake: mg2 1000ml 03:13 Drug: Pepcid 20 mg Route: IVP; Site: right antecubital; mg2 04:26 Follow up: Response: No adverse reaction mg2 03:13 Drug: morphine 4 mg Route: IVP; Site: right antecubital; mg2 04:26 Follow up: Response: No adverse reaction; Marked relief of symptoms mg2 03:13 Drug: Zofran (Ondansetron) 4 mg Route: IVP; Site: right antecubital; mg2 04:26 Follow up: Response: No adverse reaction; Marked relief of symptoms mg2 Intake: 04:27 IV: 1000ml; Total: 1000ml. mg2 Outcome: 04:25 Discharge ordered by . ma2 04:41 Discharged to home ambulatory. mg2 04:41 Condition: good 04:41 Discharge instructions given to patient, Instructed on discharge instructions, follow up and referral plans. medication usage, Demonstrated understanding of instructions, follow-up care, medications, Prescriptions given X 2. 04:41 Patient left the ED. mg2 Signatures: Elisabeth Manrique1 Bobby Anderson RN RN jd3 Samantha Newton MD MD ma2 Yousuf Carlton RN RN mg2 Corrections: (The following items were deleted from the chart) 04:03 02:36 PMHx: Diabetes - NIDDM; mg2 sg
--- NOTE | 2019-11-23 04:26 | EDPHYS ---
Physician Documentation [facility] Name: Miguel Zayas Age: 29 yrs Sex: Male : 1990 Arrival Date: 11/23/2019 Time: 02:25 Bed 16 Private MD: ED Physician Samantha Newton HPI: 11/22 03:01 This 29 yrs old Male presents to ER via Ambulatory with complaints of ma2 Diarrhea, Abdominal Pain. 03:01 The patient presents to the emergency department with diarrhea. Onset: The ma2 symptoms/episode began/occurred gradually, 3 week(s) ago. Associated signs and symptoms: Pertinent negatives: belching, dysuria, GI bleeding, hematuria. Severity of symptoms: At their worst the symptoms were mild. The patient has experienced similar episodes in the past. Historical: - Allergies: 02:36 Amoxicillin; mg2 - Home Meds: 02:36 Levemir 100 unit/mL subcutaneous soln 20 unit nightly for Type 1 Diabetes Mellitus mg2 [Active]; - PMHx: 02:36 Diabetes - IDDM; mg2 - PSHx: 02:36 None; mg2 - Immunization history:: Flu vaccine is not up to date. - Social history:: Smoking status: Patient reports the use of cigarette tobacco products, smokes one pack cigarettes per day. Patient/guardian denies using alcohol, street drugs, IV drugs, Patient/guardian denies using. - Family history:: not pertinent. ROS: 03:01 Constitutional: Negative for fever, chills, and weight loss. ma2 03:01 All other systems are negative. Exam: 03:01 Constitutional: This is a well developed, well nourished patient who is awake, alert, ma2 and in no acute distress. Chest/axilla: Normal chest wall appearance and motion. Nontender with no deformity. No lesions are appreciated. Cardiovascular: Regular rate and rhythm with a normal S1 and S2. No gallops, murmurs, or rubs. Normal PMI, no JVD. No pulse deficits. Respiratory: Lungs have equal breath sounds bilaterally, clear to auscultation and percussion. No rales, rhonchi or wheezes noted. No increased work of breathing, no retractions or nasal flaring. Abdomen/GI: Soft, non-tender, with normal bowel sounds. No distension or tympany. No guarding or rebound. No evidence of tenderness throughout. MS/ Extremity: Pulses equal, no cyanosis. Neurovascular intact. Full, normal range of motion. Neuro: Awake and alert, GCS 15, oriented to person, place, time, and situation. Cranial nerves II-XII grossly intact. Motor strength 5/5 in all extremities. Sensory grossly intact. Cerebellar exam normal. Normal gait. Vital Signs: 02:34 BP 137 / 92; Resp 18; Temp 98.4; Pulse Ox 100% on R/A; Weight 68.04 kg; Height 5 ft. 11 mg2 in. (180.34 cm); Pain 6/10; 03:14 Pulse 76; Pulse Ox 100% on R/A; mg2 04:27 Pulse 72; Resp 18; Temp 98.5; Pulse Ox 100% on R/A; mg2 04:40 BP 128 / 78; Pulse 68; Resp 18; Temp 98; Pulse Ox 100% on R/A; mg2 02:34 Body Mass Index 20.92 (68.04 kg, 180.34 cm) mg2 MDM: 02:28 Patient medically screened. ma2 03:01 Differential diagnosis: gastritis, pancreatitis, viral gastroenteritis, ma2 gastroenteritis. Data reviewed: vital signs, nurses notes. 04:25 Counseling: I had a detailed discussion with the patient and/or guardian regarding: the ma2 historical points, exam findings, and any diagnostic results supporting the discharge/admit diagnosis, the presence of at least one elevated blood pressure reading (>120/80) during this emergency department visit, the need for outpatient follow up. Response to treatment: the patient's symptoms have markedly improved after treatment. 11/22 02:38 Order name: Basic Metabolic Panel; Complete Time: 04:09 wv2 11/22 02:38 Order name: CBC with Diff; Complete Time: 03:49 wv2 11/22 02:38 Order name: Hepatic Function; Complete Time: 04:09 ma2 11/22 02:38 Order name: Lipase; Complete Time: 04:09 wv2 11/22 03:09 Order name: Urine Dipstick--Ancillary (enter results); Complete Time: 03:49 sg 11/22 03:14 Order name: Glucose, Ancillary Testing; Complete Time: 03:49 EDMS 11/22 02:38 Order name: IV Saline Lock; Complete Time: 03:14 wv2 11/22 02:38 Order name: Labs collected and sent; Complete Time: 03:14 wv2 11/22 02:38 Order name: Urine Dipstick-Ancillary (obtain specimen); Complete Time: 03:09 wv2 Administered Medications: 03:13 Drug: NS 0.9% 1000 ml Route: IV; Rate: 1 bolus; Site: right antecubital; mg2 04:27 Follow up: Response: No adverse reaction; IV Status: Completed infusion; IV Intake: mg2 1000ml 03:13 Drug: Pepcid 20 mg Route: IVP; Site: right antecubital; mg2 04:26 Follow up: Response: No adverse reaction mg2 03:13 Drug: morphine 4 mg Route: IVP; Site: right antecubital; mg2 04:26 Follow up: Response: No adverse reaction; Marked relief of symptoms mg2 03:13 Drug: Zofran (Ondansetron) 4 mg Route: IVP; Site: right antecubital; mg2 04:26 Follow up: Response: No adverse reaction; Marked relief of symptoms mg2 Disposition: 11/23/19 04:25 Discharged to Home. Impression: Diarrhea, unspecified. - Condition is Stable. - Discharge Instructions: Diarrhea, Adult. - Prescriptions for Zofran 4 mg Oral Tablet - take 1 tablet by ORAL route every 12 hours As needed; 20 tablet. Pepcid 20 mg Oral Tablet - take 1 tablet by ORAL route once daily for 10 days; 10 tablet. - Medication Reconciliation Form, Thank You Letter, Antibiotic Education, Prescription Opioid Use form. - Follow up: Private Physician; When: Tomorrow; Reason: Continuance of care. Signatures: Dispatcher [employer] EDMS Samantha Newton MD MD ma2 Yousuf Carlton RN RN mg2 Corrections: (The following items were deleted from the chart) 04:03 02:36 PMHx: Diabetes - NIDDM; mg2 sg 04:41 04:25 11/23/2019 04:25 Discharged to Home. Impression: Diarrhea, unspecified. Condition mg2 is Stable. Forms are Medication Reconciliation Form, Thank You Letter, Antibiotic Education, Prescription Opioid Use. Follow up: Private Physician; When: Tomorrow; Reason: Continuance of care. ma2
[2019-11-23 04:51] VITALS: O2SAT 100
[2019-11-23 04:55] VITALS: BP 128/78; TEMP 98
== END 2019-11-23 04:41 | disposition home or self-care (01) ==
LOC: ER 02:23
DX: R19.7 Diarrhea, unspecified (principal); E10.9 Type 1 diabetes mellitus without complications; F17.210 Nicotine dependence, cigarettes, uncomplicated; Z79.4 Long term (current) use of insulin; Z88.1 Allergy status to other antibiotic agents
CPT/HCPCS: 36415; 80048; 80076; 81003; 82947; 83690; 85025; 96361; 96374; 96375; 99284; J2405; J7030